=== PATIENT | female | born 1945 | race Caucasian/White ===

== ENCOUNTER 2021-05-14 07:54 | Outpatient (CLI) | payer MEDICARE, SELFPAY ==
--- NOTE | ~2021-05-14 | PE_ITS ---
EXAMINATION: PET skull to mid thigh DATE: 05/14/2021 09:29 INDICATION: Multiple pulmonary nodules TECHNIQUE: Blood glucose level was 92 mg/dL. 9.008 mCi of 18-fluorodeoxyglucose (18-FDG) was administ ered i.v. Low dose computed tomography (CT) images were acquired from the base of the brain to the pr oximal thighs for attenuation correction and anatomic localization. Positron emission tomography (PET ) images were acquired in the same distribution beginning 51 minutes after injection. Images includin g fused PET/CT images were reconstructed in axial, coronal, and sagittal planes. Automated exposure c ontrol technique was employed. The dose-length product was 284.82mGy-cm. COMPARISON: None FINDINGS: Head/neck: There is symmetric increased activity in the oral cavity, palatine tonsils, parotid glands, laryngeal muscles and ocular muscles without CT correlate, likely physiologic. Somewhat heterogeneous diffuse increased FDG activity throughout the thyroid including the enlarged portion of the thyroid which ext ends into the superior mediastinum. No pathologically enlarged cervical lymphadenopathy or other susp icious foci of increased FDG uptake in the visualized head or neck. Chest: Mild biapical pleural-parenchymal scarring. 11 x 8 mm nodule at the apical segment of the right upper lobe with negligible FDG activity with maximal SUV of 1.4 which is less than the level of the blood pool. Few additional 4 mm smaller nodules in the right upper lobe without evident FDG activity. Small branching opacity in the right lower lobe the largest most central portion which measures up to 5 mm diameter, potentially mucus impacted bronchus nodules without evident FDG activity. 8 mm nodule at t he posterior medial sulcus of the left lower lobe without evident FDG activity. Mild linear discoid a telectasis at the bilateral lung bases. Cluster of several calcified left lower lobe nodules along wi th calcified left hilar and mediastinal lymph nodes consistent with old granulomatous disease. Heart size is normal. Atherosclerotic coronary artery calcific location. No pericardial effusion. Thoracic aorta is normal in caliber. No pathologically enlarged or FDG avid thoracic lymphadenopathy. Abdomen/pelvis/proximal thighs: Physiologic renal accumulation and excretion of FDG activity in the kidneys, bladder and along portio ns of ureters. 3 mm nonobstructing stone at the upper pole of the left kidney. Additional tiny calcif ication at the left renal dell. More likely to represent atherosclerotic calcification. Normal degree and heterogenous pattern of increased uptake throughout the liver without radiologic correlate or do minant FDG avid lesion. Multiple hepatic and splenic calcific lesions consistent with old granulomato us disease. The gallbladder, pancreas and bilateral adrenal glands are normal. Mild uptake scattered throughout the bowels without radiologic correlate, also likely physiologic. Decompressed bladder, at rophic anteverted uterus and bilateral adnexa are unremarkable. No other abnormal foci of increased F DG uptake or pathologically enlarged lymphadenopathy in the abdomen, pelvis or proximal thighs. Musculoskeletal: Mild lumbar levocurvature. Severe spondylosis in the cervical spine at the lumbosacral junction. Mild spondylosis at the intervening thoracolumbar spine. No suspicious lytic, blastic or FDG avid bone le sions. IMPRESSION: 1. No abnormal FDG uptake associated with a few bilateral pulmonary nodules, the largest measuring 11 x 8 mm in the right upper lobe and 8 mm in the left lower lobe. Although favoring benign etiology mo st likely infectious/inflammatory, slowly growing malignancy cannot be absolutely excluded and would recommend continued radiographic follow-up with low-dose noncontrast chest CT in 3 months with compar nicholas to any prior outside imaging. 2. Intrathoracic goiter with heterogeneo
[2021-05-14 08:14] LABS: Glucose Point of Care 92 mg/dl (65-105)
== END 2021-05-14 07:55 | disposition home or self-care (01) ==
LOC: ANHIMG 07:57
PROVIDERS: PCP Internal Medicine; Visit Provider Internal Medicine
DX: R91.8 Other nonspecific abnormal finding of lung field (principal); E11.9 Type 2 diabetes mellitus without complications; N20.0 Calculus of kidney; E04.9 Nontoxic goiter, unspecified
CPT/HCPCS: 78815; A9552